=== PATIENT | male | born 1980 | race Caucasian/White ===

== ENCOUNTER 2020-04-18 07:58 | Emergency (ER) | payer OTHER, SELFPAY ==
[2020-04-18 08:04] VITALS: BP 149/92; PULSE 80; RESP 18; TEMP 36.5; O2SAT 99
--- NOTE | 2020-04-18 08:15 | DI.CT_ITS ---
EXAM: CT ABDOMEN PELVIS W CLINICAL HISTORY: umbilical pain, hernia TECHNIQUE: COMPARISON: No exams were available for comparison FINDINGS: CT examination of the abdomen pelvis was performed bolus infusion 125 cc of Omnipaque 350 ingestion b arium. Images obtained through the lung bases are unremarkable.. Liver and spleen appear normal negrete creas appears normal. Gallbladder and bile ducts are CT normal. Adrenals and kidneys appear normal. No urinary tract calcification or obstruction. Abdominal aorta is of normal diameter and major visceral branches appear normal Appendix is normal. No evidence of diverticulitis or obstruction. Urinary bladder is unremarkable. No pelvic or abdominal lymphadenopathy. There is an umbilical hernia which is fat containing. Small fat containing bilateral inguinal hernia s are noted as well. Patient reportedly has symptoms referable to the [place] umbilical region. No gross fluid collection id entified. No significant fat stranding identified to suggest strangulated omental fat. There hernia measures about 23 x 32 millimeters in diameter on axial imaging and does not contain bowel.. IMPRESSION: Umbilical hernia as described above. No bowel involvement. No gross evidence of abscess or fat stra ngulation.
--- NOTE | 2020-04-18 08:18 | ED.GENADUL_ITS ---
Discharge Plan Disposition Patient Disposition: HOME Condition: Improving Discharge Details Chief Complaint: Abd Prob Clinical Impression: Hernia, umbilical Primary Care Provider: Morgan Armijo ED Provider: Wilbert Barr Discharge Instructions Instructions: Umbilical Hernia (ED) Additional Instructions: No heavy lifting greater than 10 to 20 pounds for the next 2 weeks. We will have our care management team arrange an outpatient follow-up for you in general surgery clinic for consultation. Return if you have recurrent abdominal pain, vomiting, or any other acute concerns. May use Tylenol and/or ibuprofen as needed for discomfort. 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 He states it was 9 out of 10 to start and improved to 4 out of 10 with rest. Continues to improve. Mildly hypertensive but otherwise unremarkable vital signs. He has a reducible umbilical hernia. Concern for incarcerated or persistent hernia and patient referred for CT imaging with oral contrast. He does have a small fat-containing umbilical hernia, no other acute findings on his images. His labs are reassuring, would note mild elevation of specific gravity of urine. Discussed with him no heavy lifting for 2 weeks, I do feel he will benefit from a consultation as an outpatient in general surgery clinic, but he may be able to avoid the need for surgical repair with improved body mechanics. Stable and improved. Appropriate for discharge to home. Lab Data Lab results reviewed: Yes I reviewed the patient's lab results. Labs: Laboratory Results - last 24 hr 04/18/20 04/18/20 04/18/20 08:12 08:12 08:25 WBC 7.62 RBC 5.79 H Hgb 16.5 Hct 49.6 MCV 85.7 MCH 28.5 MCHC 33.3 RDW 12.5 Plt Count 276 MPV 9.5 Immature Gran % 0.5 Neutrophils % 67.6 Lymphocytes % 26.2 Monocytes % 4.3 Eosinophils % 1.0 Basophils % 0.4 Absolute Neutrophils 5.14 Absolute Lymphocytes 2.00 Absolute Monocytes 0.33 Absolute Eosinophils 0.08 Absolute Basophils 0.03 Sodium 139 Potassium 4.1 Chloride 103 Carbon Dioxide 26.7 Anion Gap 9.3 BUN 17 Creatinine 1.34 H Estimated GFR/1.73 m2 59.04 Glucose 107 H Calcium 8.9 Total Bilirubin 0.6 AST 17 ALT 37 Alkaline Phosphatase 81 Total Protein 7.8 Albumin 4.4 Urine Color Yellow Urine Clarity Clear Urine pH 6.0 Ur Specific [place] >= 1.030 H Urine Protein Negative Urine Ketones Negative Urine Blood Negative Urine Nitrite Negative Urine Bilirubin Negative Urine Urobilinogen 0.2 Ur Leukocyte Esterase Negative Urine Glucose Negative HPI General Mode of arrival: ambulatory . Date/Time Provider Initiated Documentation: 04/18/20 08:05 . Limitations to Documentation: no limitations . Information obtained by: patient . History of Present Illness 39 year old M presents to the emergency department with the chief complaint of Umbilical pain and bulge when lifting, described as moderate, Quality is described as dull, and is localized to the abdomen. Patient reports no radiation. Patient started experiencing this hour(s) and it has been constant. No relieving factors improve symptom(s), No exacerbating factors reported . Patient notes denies chest pain, diaphoresis, loss of appetite and syncope. Patient did receive the following treatments prior to arrival, none Related Data Allergies Allergy/AdvReac Type Severity Reaction Status Date / Time No Known Drug Allergies Allergy Unknown unknown Unverified 04/18/20 08:08 General Stated Complaint: Abd Prob CARRIE: 3 Review of Systems Narrative: No chest pain, difficulty breathing. No syncope. No change to bowel or bladder habits. He is otherwise been well. 8 systems reviewed and otherwise negative. [facility] Surgical History THYROGLOSSAL DUCT REPAIR DUCT CYST REPAIR ([facility] [place]) Family History Mother No problems noted. Father No problems noted. STRONG FAMILY HISTORY No problems noted. Social History Smoking/Tobacco Use Status: Former Tobacco Use Alcohol Intake: current Alcohol Intake frequency: a few times a week Drug use: Never Substance use type: does not use Do you feel safe at home: Yes Do you feel safe in your relationship?: Yes Exam Narrative Exam Narrative: GEN: awake, alert, oriented 3. Pleasant, well groomed, interactive. HEAD: Normocephalic, atraumatic ENT: Mucous membranes moist, oropharynx unremarkable, External ear exam unremarkable EYES: PERRL, EOMI NECK: Full ROM, no JACEY, no menigismus CHEST/RESP: Nontender, clear to auscultation bilateral, no wheeze/rhonchi/rales CARDIOVASCULAR: RRR, no murmur, rub dana. 2+ Rad pulse bilateral ABDOMEN: Soft, reducible umbilical hernia that is mildly tender, no rebound or guarding. +Bowel sounds EXT: Full ROM, no edema, no rash Neuro: Grossly normal neurologic exam, conversant, interactive. Psych: Speech fluent, thoughts congruent, affect normal Course Vital Signs Vital signs: Vital Signs Temperature 36.5 C 04/18/20 08:04 Pulse 80 04/18/20 08:04 Respiratory Rate 18 04/18/20 08:04 Blood Pressure 149/92 H 04/18/20 08:04 Pulse Oximetry 99 04/18/20 08:04 Temperature 36.5 C 04/18/20 08:04 Temperature Source Temporal Artery Scan 04/18/20 08:04 Pulse 80 04/18/20 08:04 Respiratory Rate 18 04/18/20 08:04 Respiratory Effort Non-Labored 04/18/20 08:09 Blood Pressure 149/92 H 04/18/20 08:04 Blood Pressure Position Supine 04/18/20 08:04 Pulse Oximetry 99 04/18/20 08:04 Oxygen Delivery Method Room Air 04/18/20 08:04 Oxygen Flow Rate 0 04/18/20 08:04 Pain Level 5 04/18/20 08:04
[2020-04-18] MEDS: Normal Saline Flush 10 ML SYR IVP (08:22)
[2020-04-18] MEDS: Normal Saline 1,000 ML 1000 ML IV (08:23)
[2020-04-18 08:26] LABS: Abs Immature Grans 0.04 10^3/uL (0.0-0.06); Absolute Basophil Count 0.03 10^3/uL (0.0-0.2); Absolute Eosinophil Count 0.08 10^3/uL (0.0-0.7); Absolute Monocyte Count 0.33 10^3/uL (0.1-0.8); Absolute Neutrophil Count 5.14 10^3/uL (1.2-6.7); Basophils % 0.4; HCT 49.6 % (40.0-50.0); HGB 16.5 g/dL (13.5-17.5); Immature Grans % 0.5; Lymphocytes % 26.2; MCH 28.5 pg (27.0-33.0); MCHC 33.3 % (32.0-36.0); MCV 85.7 fL (80-95); MPV 9.5 fL (8.0-11.0); Monocytes % 4.3; Neutrophils % 67.6; Nucleated RBC 0 %; Platelet Count 276 10^3/uL (130-400); RBC 5.79 10^6/uL (4.36-5.78); RDW 12.5 % (11.8-14.1); RDW-SD 38.7 fL; WBC 7.62 10^3/uL (4.4-10.8)
[2020-04-18] MEDS: Omnipaque 350 MG/ML 50 ML BTL IJ (08:36)
[2020-04-18 08:40] LABS: ALT 37 U/L (16-63); AST 17 U/L (15-37); Albumin 4.4 g/dL (3.4-5.0); Alkaline Phosphatase 81 U/L (46-116); Anion Gap 9.3 mmol/L (3-11); BUN 17 mg/dL (7-18); Bilirubin, Total 0.6 mg/dL (0.2-1.0); CO2 26.7 mmol/L (21.0-32.0); CREATININE 1.34 mg/dL (0.70-1.30); Calcium 8.9 mg/dL (8.5-10.1); Chloride 103 mmol/L (98-107); Estimated GFR 59.04 (mL/min/1.73m2); Glucose 107 mg/dL (74-106); Potassium 4.1 mmol/L (3.5-5.1); Sodium 139 mmol/L (136-145); Total Protein 7.8 g/dL (6.4-8.2)
[2020-04-18 08:41] LABS: Bilirubin Negative (Negative); Blood Negative (Negative); Clarity Clear (Clear); Glucose Negative (Negative); Ketones Negative (Negative); Leukocyte Esterase Negative (Negative); Nitrite Negative (Negative); Specific Gravity >= 1.030 (1.005-1.025); Urobilinogen 0.2 EU/dL (Up TO 0.2)
[2020-04-18 09:04] VITALS: BP 134/88; PULSE 80; RESP 20; TEMP 36.7; O2SAT 99
[2020-04-18] MEDS: Omnipaque 350 MG/ML 100 ML BTL IV (10:39)
[2020-04-18] MEDS: Normal Saline - Diluent 50 ML VIAL IV (10:40)
--- NOTE | 2020-04-18 10:41 | NUR.NOTE ---
Referral faxed to [facility]Nursing Note:
[2020-04-18 10:47] VITALS: BP 132/83; PULSE 68; RESP 18; TEMP 36.7; O2SAT 98
== END 2020-04-18 10:51 | disposition home or self-care (01) ==
PROVIDERS: Emergency Provider Emergency Medicine; PCP Emergency Medicine
DX: K42.9 Umbilical hernia without obstruction or gangrene (principal); X50.0XXA Overexertion from strenuous movement or load, initial encounter; Y99.0 Civilian activity done for income or pay
CPT/HCPCS: 36415; 80053; 96360; 99285; 74177; 81003; 85025; 99284; J3490; Q9967

== ENCOUNTER 2020-05-07 06:11 | Day surgery (SDC) | payer OTHER, SELFPAY ==
[2020-05-07 05:59] VITALS: BP 124/80; PULSE 80; RESP 20; TEMP 36.7; O2SAT 98
[2020-05-07] MEDS: Lactated Ringers 1,000 ML 80 ML IV (06:37)
--- NOTE | 2020-05-07 07:26 | W.PM.DSUDISC ---
Discharge Plan Disposition Patient Disposition: HOME Condition: Good Discharge Details Reason For Visit: Umbilical hernia repair Attending Provider: Ena Olivares Primary Care Provider: Morgan Armijo Home Meds and New Rx's Prescriptions: No Action No Known Home Meds RF: 0 Discharge Instructions Additional Instructions: The top bandage can be removed tomorrow. The steri strips will usually stick for about a week. When the edges start to curl up, they can be removed. It is okay to shower tomorrow, the water can run over the steri strips Do not swim or soak in a tub for two weeks Call for any concerns including fever, increased pain, vomiting, incision redness or drainage. Do not lift more than 15 pounds for four weeks. Walking and stairs are fine. Do not drive if on narcotic pain meds or if limited by pain. May use Tylenol alternating with ibuprofen for pain control. Ice is also an option. The maximum dose for Tylenol is 4000 mg/day. May use ibuprofen 800 mg every 8 hours as needed. If concerned about constipation, you may use a stool softener or milk of magnesia. Referrals: Ena Olivares MD [ [facility] STAFF PHYSICIAN] - (Return in 10-14 days for postop check) Activity:: Do not lift more than 15 pounds Remove Dressings/Wound Care:: 24 hours Shower/Bathe:: 24 hours Diet:: As Tolerated Discharge Orders Discharge Orders: Discharge Order (Routine); Ordered 05/07/20 Ordered By: Ena Olivares DS: Diagnosis Discharge Diagnosis (1) Hernia, umbilical: Status: Acute
--- NOTE | 2020-05-07 07:27 | W.PM.OP ---
Date of service: 05/07/20 Time of Service: 08:44 Operative Note Operative Note DATE OF PROCEDURE: 05/07/20 PRE-OP DIAGNOSIS: Umbilical hernia POST-OP DIAGNOSIS: same PROCEDURE: Umbilical hernia repair with mesh SURGEON: Ena Olivares OPERATIONS RESEARCH GROUP MANAGER: Phyllis Hernandez ANESTHESIA: MAC and local Indications: This 39 year old man presents with a painful umbilical hernia that has partially reducible fat present on preoperative exam. Procedure Description: The patient with placed supine on the operating table. His periumbilical region was prepped and draped sterilely. A curvilinear incision was marked underneath the umbilicus and infiltrated with local anesthetic. Incision was made with knife. Subcutaneous tissue divided with cautery down to the fascia. The hernia sac was dissected off the posterior umbilical skin sharply. The preperitoneal fat was reduced thourgh a fascial defect which measured about 2 cm. A preperitoneal space was cleared and a medium t[place] river Ventralex mesh was inserted into the space. The mesh was sutured in position with 0- Prolene in 4 quadrants in a buried mattress fashion. The fascia was closed over the mesh with a running 0 Vicryl stitch and the umbilical skin tacked down with an O Vicryl. The skin was closed with a 4-0 Monocryl subcuticular stitch. He tolerated procedure well and was stable to recovery.
[2020-05-07] MEDS: ceFAZolin 2 GM/50 ML BAG IVPB (07:29)
[2020-05-07] MEDS: Lidocaine 1% Multi-Dose 50 ML VIAL (07:42)
[2020-05-07 09:05] VITALS: BP 108/63; PULSE 74; RESP 20; TEMP 36.3; O2SAT 94
== END 2020-05-07 09:40 | disposition home or self-care (01) ==
PROVIDERS: PCP Emergency Medicine; Visit Provider Surgery
PROC: (CPT 49585; principal; 2020-05-07 07:30)
DX: K42.9 Umbilical hernia without obstruction or gangrene (principal)
CPT/HCPCS: 49585; C1781; J0690; J1100; J1885; J2001; J2405

== ENCOUNTER 2020-11-11 03:22 | Emergency (ER) | payer SELFPAY ==
--- NOTE | 2020-11-11 03:15 | RT.EKG_ITS ---
APPROVED REPORT Exam: Resting ECG Patient Location: E HR:95 bpm ECG Measurements Heart Rate 95 AXIS NV 150 P 55 QRSd 105 QRS -9 QT 353 T 74 QTc 443 Conclusion Sinus rhythm...normal P axis, V-rate 60- 99 Physician: Rate 95, sinus rhythm, intervals normal, no significant ST elevation or depression. No ev idence of STEMI. No other abnormalities.
[2020-11-11 03:26] VITALS: BP 156/94; PULSE 93; RESP 16; TEMP 36.7; O2SAT 98
--- NOTE | 2020-11-11 03:30 | DI.RAD_ITS ---
EXAM: XR CHEST 2V PA LATERAL CLINICAL HISTORY: generalized chest tightness TECHNIQUE: 2D digital imaging was performed. COMPARISON: No exams were available for comparison FINDINGS: MEDIASTINUM: Normal. HEART: Normal. PULMONARY VASCULATURE: Normal. LUNGS: Clear. PLEURAL SPACE: No pleural effusion or pneumothorax. BONE:Within normal limits for the patient's age. OTHER FINDINGS:Normal. IMPRESSION: No acute pulmonary findings. DATA REPOSITORY: RADIATION DOSE DELIVERED:
[2020-11-11 03:32] VITALS: RESP 16
--- NOTE | 2020-11-11 03:36 | W.ED.GENAD ---
Discharge Plan Disposition Patient Disposition: HOME Condition: Good Discharge Details Clinical Impression: Chest pain Primary Care Provider: Unknown,Unknown ED Provider: Fredy Chirinos Home Meds and New Rx's Prescriptions: Continued acetaminophen [Tylenol Extra Strength] 500 mg tablet 1,000 mg PO Q6H PRNRF: 0 Discharge Instructions Instructions: Chest Pain (ED) Additional Instructions: At this time your cardiac work-up is unremarkable and shows no signs of a heart attack. Your symptoms may have been from a mild spasm of one of the vessels around your heart, or potentially a panic attack like your previous episodes. Please make sure to drink plenty of fluids, and return promptly if your symptoms return. If you notice any worsening of your symptoms, or any new symptoms such as vomiting, diarrhea, fever, chills, shortness of breath, chest pain, numbness, weakness, or fainting , please return immediately to the emergency department for reevaluation. Please follow up with your primary care provider as soon as possible for reassessment and reevaluation. As always, it was a pleasure participating in your medical care today. It would be of benefit to follow-up closely with your family doctor and discuss future potential stress test options for further evaluation. Medical Decision Making This is a 40-year-old male who presents today for evaluation of chest pain. Patient states that about an hour and a half ago he was awoken from sleep with some tightness in his chest, which led to some mild pain in his left shoulder. This lasted a total of 15 minutes, and then resolved on its own without any intervention. He then came to the ER for further evaluation. He denies any exertional component. He denies any chest pain or shortness of breath as of late with any exercise. In fact he states that he walked 2 miles earlier today and had no difficulty with that. Denies PE risk factors such as recent long car rides, immobilization, recent surgery, prior history of DVT or PE, family history of PE or DVT, morbid obesity, exogenous estrogen and smoking, hemoptysis, history of cancer. She does have a family history of cardiac disease on his mother side in her 50s. He denies any other concerning family history. He denies any cocaine use. No other complaints at this time. Physical exam is notably unremarkable. No concerning abnormalities. Vital signs stable. The patient states he had an episode similar to this in the past when he had a panic attack. He feels that they are pretty identical symptoms to what he had this evening. However because of his age, race factors of hypertension, high cholesterol, and his family history. We will get cardiac work-up, delta troponins, monitor closely and reassess. I feel cardiac musculoskeletal etiology is low was on the differential with his symptoms were likely potentially panic or anxiety driven, however I do feel that further evaluation of these other etiologies is indicated at this time. 7:17 AM Laboratory work-up has returned, including initial and delta troponin, both EKGs are unremarkable. All troponins are normal. Laboratory work-up benign. No signs of heart strain with a proBNP of 14. Patient feels well and has had no return of his chest pain. Symptoms appear inconsistent with ACS at this time. Instead they appear more consistent with potential anxiety provoked event like his previous episode. Patient will be discharged home. Discussed red flags which to return. Heart score in the low risk category. I have extensively reviewed the treatment plan and discharge instructions with the patient. I have addressed all patient concerns at this time. The patient was made aware of what symptoms to monitor for that would warrant a return to the emergency department. Discussed the plan with the patient, they demonstrate verbal understanding and agreement with our assessment and plan at this time. The documentation in this chart was dictated using [employer] dictation software. Please excuse any dictation errors. EKG 3:31 AM Rate 95, sinus rhythm, intervals normal, no significant ST elevation or depression. No evidence of STEMI. No other abnormalities. FINDINGS: Lungs: Unremarkable. No consolidation. Pleural spaces: Unremarkable. No pleural effusion. No pneumothorax. Heart/Mediastinum: Unremarkable. No cardiomegaly. Bones/joints: Unremarkable. IMPRESSION: No acute findings. Thank you for allowing us to participate in the care of your patient. Dictated and Authenticated by: Marv Osullivan MD 11/11/2020 3:55 AM Eastern Time ([place] & [place]) HPI General Date/Time Provider Initiated Documentation: 11/11/20 03:24. HPI Narrative: This is a 40-year-old male who presents today for evaluation of chest pain. Patient states that about an hour and a half ago he was awoken from sleep with some tightness in his chest, which led to some mild pain in his left shoulder. This lasted a total of 15 minutes, and then resolved on its own without any intervention. He then came to the ER for further evaluation. He denies any exertional component. He denies any chest pain or shortness of breath as of late with any exercise. In fact he states that he walked 2 miles earlier today and had no difficulty with that. Denies PE risk factors such as recent long car rides, immobilization, recent surgery, prior history of DVT or PE, family history of PE or DVT, morbid obesity, exogenous estrogen and smoking, hemoptysis, history of cancer. She does have a family history of cardiac disease on his mother side in her 50s. He denies any other concerning family history. He denies any cocaine use. No other complaints at this time. Related Data Home Medications Medication Instructions Recorded Confirmed acetaminophen 500 mg tablet 1,000 mg PO Q6H PRN tab 05/16/20 11/11/20 Allergies Allergy/AdvReac Type Severity Reaction Status Date / Time No Known Drug Allergies Allergy Unknown unknown Unverified 11/11/20 03:31 General Stated Complaint: Anxiety CARRIE: 3 Review of Systems All systems reviewed & are unremarkable except as noted in HPI and below PFSH Medical History Postoperative nausea and vomiting Surgical History THYROGLOSSAL DUCT REPAIR DUCT CYST REPAIR ([facility] [place] Family History Mother No problems noted. Father No problems noted. STRONG FAMILY HISTORY No problems noted. Social History Smoking/Tobacco Use Status: Former Tobacco Use Quit Date: 09/13/11 Smoking risk assessment performed?: Yes Alcohol Intake: current Alcohol Intake frequency: a few times a week Alcohol type: hard liquor Drug use: Daily Substance use type: marijuana Do you feel safe at home: Yes Do you feel safe in your relationship?: Yes Exam Narrative Exam Narrative: 1.Const: Well-nourished, Well-developed, appearing stated age 2.Eyes: PERRL, no conjunctival injection, and symmetrical lids. 3.ENT: Atraumatic external nose and ears. Moist MM. Neck: Symmetric, trachea midline, No thyromegaly. 4.CVS: +S1/S2, No murmurs or gallops. Peripheral pulses 2+ and equal in all extremities. Brisk capillary refill in all extremities. 5.RESP: Unlabored respiratory effort. Clear to auscultation bilaterally. No wheezes rales or rhonchi 6.GI: Soft, Nontender/Nondistended, No hepatosplenomegaly. No guarding or rebound. 7.MSK: Normocephalic/Atraumatic, Extremities w/o deformity or ttp No cyanosis or clubbing, Normal movement of all extremities 8.Skin: Warm, Dry. No rashes or lesions. 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 Sensation grossly intact, no focal neurologic deficits. 10.Psych: (AAO) x3. Appropriate mood and affect Course Vital Signs Vital signs: Vital Signs Temperature 36.7 C 11/11/20 03:26 Pulse 93 H 11/11/20 03:26 Respiratory Rate 16 11/11/20 03:26 Blood Pressure 156/94 H 11/11/20 03:26 Pulse Oximetry 98 11/11/20 03:26 Temperature 36.7 C 11/11/20 03:26 Pulse 93 H 11/11/20 03:26 Respiratory Rate 16 11/11/20 03:32 Respiratory Effort Non-Labored 11/11/20 03:32 Respiratory Pattern Normal 11/11/20 03:32 Blood Pressure 156/94 H 11/11/20 03:26 Pulse Oximetry 98 11/11/20 03:26 Pain Level 1 11/11/20 03:26
[2020-11-11 03:43] LABS: Abs Immature Grans 0.04 10^3/uL (0.0-0.06); Absolute Basophil Count 0.05 10^3/uL (0.0-0.2); Absolute Eosinophil Count 0.17 10^3/uL (0.0-0.7); Absolute Lymphocyte Count 3.29 10^3/uL (1.2-3.4); Absolute Monocyte Count 0.55 10^3/uL (0.1-0.8); Absolute Neutrophil Count 6.15 10^3/uL (1.2-6.7); Basophils % 0.5; Eosinophils % 1.7; HCT 47.8 % (40.0-50.0); HGB 16.1 g/dL (13.5-17.5); Immature Grans % 0.4; Lymphocytes % 32.1; MCH 28.5 pg (27.0-33.0); MCHC 33.7 % (32.0-36.0); MCV 84.6 fL (80-95); MPV 9.1 fL (8.0-11.0); Monocytes % 5.4; Neutrophils % 59.9; Nucleated RBC 0 %; Platelet Count 274 10^3/uL (130-400); RBC 5.65 10^6/uL (4.36-5.78); RDW 12.5 % (11.8-14.1); RDW-SD 38.2 fL; WBC 10.25 10^3/uL (4.4-10.8)
[2020-11-11] MEDS: Normal Saline 1,000 ML 1000 ML IV (03:43)
[2020-11-11] MEDS: Aspirin 81 MG CHEW 324 MG CH (03:43)
--- NOTE | 2020-11-11 03:56 | DI.VRAD_ITS ---
PROCEDURE INFORMATION: Exam: XR Chest Exam date and time: 11/11/2020 3:51 AM Age: 40 years old Clinical indication: Other: Generalized chest tightness TECHNIQUE: Imaging protocol: XR of the chest Views: 2 views. COMPARISON: CR CHEST 2 VIEWS PA,LAT 11/20/2016 7:33 AM FINDINGS: Lungs: Unremarkable. No consolidation. Pleural spaces: Unremarkable. No pleural effusion. No pneumothorax. Heart/Mediastinum: Unremarkable. No cardiomegaly. Bones/joints: Unremarkable. IMPRESSION: No acute findings. Dictated and Authenticated by: Marv Osullivan MD. Ordering:SALLIE Daniel MD
[2020-11-11 04:03] LABS: ALT 38 U/L (16-63); AST 11 U/L (15-37); Alkaline Phosphatase 93 U/L (46-116); Anion Gap 8.7 mmol/L (3-11); BUN 19 mg/dL (7-18); Bilirubin, Total 0.4 mg/dL (0.2-1.0); CO2 27.3 mmol/L (21.0-32.0); CREATININE 1.6 mg/dL (0.70-1.30); Calcium 8.7 mg/dL (8.5-10.1); Chloride 104 mmol/L (98-107); Estimated GFR 47.87 (mL/min/1.73m2); Glucose 114 mg/dL (74-106); Lipase 148 U/L (73-393); NT-proBNP 14 pg/mL (<300); Potassium 3.6 mmol/L (3.5-5.1); Sodium 140 mmol/L (136-145); Total Protein 7.5 g/dL (6.4-8.2)
[2020-11-11 04:04] LABS: Troponin I < 0.05 ng/mL (<0.06)
[2020-11-11 04:30] VITALS: BP 148/89; PULSE 81; RESP 15; O2SAT 98
--- NOTE | 2020-11-11 06:30 | RT.EKG_ITS ---
APPROVED REPORT Exam: Resting ECG Patient Location: E HR:83 bpm ECG Measurements Heart Rate 83 AXIS ID 141 P 21 QRSd 99 QRS -8 QT 348 T 2 QTc 410 Conclusion Sinus rhythm...normal P axis, V-rate 60- 99 I have reviewed and interpreted ECG and agree with software generated interpretation. Physician: no stemi, unchanged from prior
[2020-11-11 07:02] LABS: Troponin I < 0.05 ng/mL (<0.06)
[2020-11-11 07:21] VITALS: BP 120/73; PULSE 79; RESP 18; TEMP 36.6; O2SAT 96
[2020-11-11 07:33] VITALS: BP 120/73; PULSE 79; RESP 18; TEMP 36.6; O2SAT 96
== END 2020-11-11 07:32 | disposition home or self-care (01) ==
LOC: ER 03:58
PROVIDERS: Emergency Provider Student in an Organized Health Care Education/Training Program
DX: R07.89 Other chest pain (principal)
CPT/HCPCS: 36415; 80053; 83690; 93005; 96360; 96361; 99285; 71046; 83880; 84484; 85025; 93010

== ENCOUNTER 2020-11-21 03:35 | Outpatient (CLI) | payer SELFPAY ==
[2020-11-21 09:47] LABS: Anion Gap 8.3 mmol/L (3-11); BUN 14 mg/dL (7-18); CO2 28.7 mmol/L (21.0-32.0); CREATININE 1.4 mg/dL (0.70-1.30); Calcium 9.1 mg/dL (8.5-10.1); Calculated LDL 135 mg/dL (<100); Chloride 103 mmol/L (98-107); Cholesterol 202 mg/dL (<200); Estimated GFR 55.85 (mL/min/1.73m2); Glucose 101 mg/dL (74-106); HDL Cholesterol 34 mg/dL (40-60); Potassium 4.2 mmol/L (3.5-5.1); Sodium 140 mmol/L (136-145); TSH (W/Ref FT4) 0.99 uIU/mL (0.36-3.74); Triglyceride 166 mg/dL (<150)
== END 2020-11-21 03:36 | disposition home or self-care (01) ==
PROVIDERS: PCP Nurse Practitioner Family; Visit Provider Nurse Practitioner Family
DX: R07.9 Chest pain, unspecified (principal)
CPT/HCPCS: 36415; 80048; 80061; 84443